=== PATIENT | female | born 1945 | race Asian ===

== ENCOUNTER 2024-09-03 22:01 | Emergency (ER) | payer MEDICARE, MEDICAID ==
[~2024-09-03] VITALS: Ht 157.5 cm; Wt 67.0 kg
[2024-09-03 22:17] VITALS: TEMP 36.9; O2SAT 99
[2024-09-04] MEDS: BALANCED SALT IRRIG SOLN 15ML IR ONE (00:01)
[2024-09-04] MEDS: FLUORESCEIN SODIUM 1MG/STRIP RIGHTEYE ONE (00:01)
[2024-09-04] MEDS: TETRACAINE 0.5% OPHTH DROPS 4ML RIGHTEYE ONE (00:02)
[2024-09-04] MEDS: FLUORESCEIN SODIUM 1MG/STRIP RIGHTEYE NR (00:02)
[2024-09-04] MEDS: TETRACAINE 0.5% OPHTH DROPS 4ML RIGHTEYE NR (00:02)
[2024-09-04] MEDS: BALANCED SALT IRRIG SOLN 15ML IR NR (00:02)
[2024-09-04] MEDS ORDERED: CIPR2.5D20 RIGHTEYE (00:26)
[2024-09-04 00:42] VITALS: BP 161/58; PULSE 55; RESP 14; O2SAT 100
== END 2024-09-04 00:43 | disposition home or self-care (01) ==
LOC: ER 22:01
DX: S05.01XA Injury of conjunctiva and corneal abrasion without foreign body, right eye, initial encounter (principal); E11.9 Type 2 diabetes mellitus without complications; I10 Essential (primary) hypertension; X58.XXXA Exposure to other specified factors, initial encounter; Y93.89 Activity, other specified; Y92.89 Other specified places as the place of occurrence of the external cause; Y99.8 Other external cause status
CPT/HCPCS: 99283